=== PATIENT | female | born 1985 | race Caucasian/White ===

== ENCOUNTER 2017-04-25 19:40 | Emergency (ER) | payer SELFPAY ==
[~2017-04-25] VITALS: Ht 177.8 cm; Wt 67.1 kg
[~2017-04-25 19:40] MED LIST: ONDA4TAB7 SL
[2017-04-25 19:52] VITALS: TEMP 37; Ht 177.8 cm; Wt 67.1 kg
--- NOTE | 2017-04-25 20:48 | EMERGENCY ROOM VISIT NOTE ---
History First contact with patient: 20:23 Chief Complaint: ED VAG BLEEDING Stated Complaint: 10 WEEKS ,BRIGHT RED SPOTTING History of Present Illness The patient is a 31 year old female who presents to the Emergency Room with complaints of vaginal bleeding that occurred approximately 2 hours prior to arrival. She thinks that it was approximately a tablespoon of blood. The patient is almost 11 weeks . She denies any abdominal cramping. No recent illnesses. She is undergoing needle care with a [employer]. She has not yet had an ultrasound. Review of Systems 10 system review performed and negative unless noted in HPI or below Past Medical/Surgical History Medical Problems: (1) Hx-Circulatory Syst Dis,Nec (2) No Known Active Medical Problems Family History No significant family history Social History Smoking Status: Never Smoker Marital Status: Housing Status: lives with family Occupation Status: unemployed Current/Historical Medications Scheduled Multivit/Min/Iron/Fol Ac/Pren ( Vitamin), 1 TAB PO DAILY Terbinafine (Lamisil Advanced), 1 DOSE TOP BID Physical Exam Vital Signs Date Time Temp Pulse Resp B/P (MAP) Pulse Ox O2 Delivery O2 Flow Rate FiO2 04/25/17 22:36 65 18 121/68 Room Air 04/25/17 21:23 76 18 117/59 98 Room Air 04/25/17 19:52 37.0 82 18 134/79 100 Room Air Physical Exam VITALS: Vitals are noted on the nurse's note and reviewed by myself. Vital signs stable. GENERAL: 31-year-old female, in no acute distress, nondiaphoretic, well- developed well-nourished. SKIN: The skin was without rashes, erythema, edema, or bruising. HEAD: Normocephalic atraumatic. MOUTH: Mucous membranes moist. NECK: Supple without nuchal rigidity. No lymphadenopathy. Cervical spine is nontender. No JVD. HEART: Regular rate and rhythm without murmurs gallops or rubs. LUNGS: Clear to auscultation bilaterally without wheezes, rales or rhonchi. No accessory muscle use. ABDOMEN: Gravid. Positive bowel sounds x 4.Soft, nontender, without organomegaly. No guarding or rebound tenderness. : MUSCULOSKELETAL: No muscle atrophy, erythema, or edema noted. Strength 5/5 throughout. NEURO: Patient was alert and oriented to person place and time. Normal sensation to touch. No focal neurological deficits. Medical Decision & Procedures ER Provider Diagnostic Interpretation: OB ultrasound FINDINGS: Intrauterine gestational sac is noted with a mean sac diameter of 2.74 cm which corresponds to an estimated gestational age of 7 weeks and 4 days. A small yolk sac, measuring 1.8 mm is noted. A pole is noted with a crown rump length of 11 mm. This has an estimated gestational age of 7 weeks and 2 days. No cardiac activity is identified. A 1.3 x 0.5 x 1.7 cm subchorionic hypoechoic focus suggests a subchorionic bleed. The ovaries are sonographically normal on this exam. The right ovary measures 3 x 1.7 x 2.5 cm and the left measures 2.8 x 1.1 x 2.3 cm. IMPRESSION: 1. Intrauterine gestational sac which contains a pole with a crown-rump length of 11 mm. No cardiac activity identified consistent with demise. 2. Small subchorionic hematoma measuring 1.7 x 1.3 x 0.5 cm. Electronically signed by: Armand Sams M.D. 04/25/2017 10:17 PM Dictated Date/Time: 04/25/2017 10:12 PM Laboratory Results 04/25/17 21:00 Red Blood Count 3.87, Mean Corpuscular Volume 92.8, Mean Corpuscular Hemoglobin 32.0, Mean Corpuscular Hemoglobin Concent 34.5, Mean Platelet Volume 10.1, Neutrophils (%) (Auto) 64.5, Lymphocytes (%) (Auto) 25.2, Monocytes (%) (Auto) 8.0, Eosinophils (%) (Auto) 1.6, Basophils (%) (Auto) 0.5, Neutrophils # (Auto) 5.61, Lymphocytes # (Auto) 2.19, Monocytes # (Auto) 0.70, Eosinophils # (Auto) 0.14, Basophils # (Auto) 0.04 04/25/17 21:00 Test 04/25/17 20:46 04/25/17 21:00 Urine Color YELLOW Urine Appearance CLEAR (CLEAR) Urine pH 6.5 (4.5-7.5) Urine Specific [place] 1.018 (1.000-1.030) Urine Protein NEG (NEG) Urine Glucose (UA) NEG (NEG) Urine Ketones NEG (NEG) Urine Occult Blood 2+ (NEG) Urine Nitrite NEG (NEG) Urine Bilirubin NEG (NEG) Urine Urobilinogen NEG (NEG) Urine Leukocyte Esterase SMALL (NEG) Urine WBC (Auto) 1-5 /hpf (0-5) Urine RBC (Auto) 5-10 /hpf (0-4) Urine Hyaline Casts (Auto) 1-5 /lpf (0-5) Urine Epithelial Cells (Auto) >30 /lpf (0-5) Urine Bacteria (Auto) NEG (NEG) White Blood Count 8.70 K/uL (4.8-10.8) Red Blood Count 3.87 M/uL (4.2-5.4) Hemoglobin 12.4 g/dL (12.0-16.0) Hematocrit 35.9 % (37-47) Mean Corpuscular Volume 92.8 fL (80-100) Mean Corpuscular Hemoglobin 32.0 pg (25-34) Mean Corpuscular Hemoglobin Concent 34.5 g/dl (32-36) Platelet Count 202 K/uL (130-400) Mean Platelet Volume 10.1 fL (7.4-10.4) Neutrophils (%) (Auto) 64.5 % Lymphocytes (%) (Auto) 25.2 % Monocytes (%) (Auto) 8.0 % Eosinophils (%) (Auto) 1.6 % Basophils (%) (Auto) 0.5 % Neutrophils # (Auto) 5.61 K/uL (1.4-6.5) Lymphocytes # (Auto) 2.19 K/uL (1.2-3.4) Monocytes # (Auto) 0.70 K/uL (0.11-0.59) Eosinophils # (Auto) 0.14 K/uL (0-0.5) Basophils # (Auto) 0.04 K/uL (0-0.2) RDW Standard Deviation 43.9 fL (36.4-46.3) RDW Coefficient of Variation 13.1 % (11.5-14.5) Immature Granulocyte % (Auto) 0.2 % Immature Granulocyte # (Auto) 0.02 K/uL (0.00-0.02) Anion Gap 5.0 mmol/L (3-11) Est Creatinine Clear Calc Drug Dose 158.4 ml/min Estimated GFR () 145.9 Estimated GFR (Non- 125.9 BUN/Creatinine Ratio 20.2 (10-20) Calcium Level 8.9 mg/dl (8.5-10.1) Total Bilirubin 0.2 mg/dl (0.2-1) Aspartate Amino Transf (AST/SGOT) 8 U/L (15-37) Alanine Aminotransferase (ALT/SGPT) 16 U/L (12-78) Alkaline Phosphatase 65 U/L (45-117) Total Protein 6.7 gm/dl (6.4-8.2) Albumin 3.6 gm/dl (3.4-5.0) Globulin 3.1 gm/dl (2.5-4.0) Albumin/Globulin Ratio 1.2 (0.9-2) Progesterone Level 5.89 ng/mL Human Chorionic Gonadotropin, Quant 9009 mIU/mL ED Course Patient was seen and examined Vital signs including blood pressure were reviewed medications list was verified with patient Labs were obtained, and a saline lock was established I reviewed discharge instructions the patient. They voiced understanding and had no further questions. Medical Decision Differential diagnosis: Subchorionic hemorrhage, threatened , uterine fibroids,, incomplete This patient is a 31-year-old female presents to the emergency department with vaginal bleeding. She is approximately 11 weeks . Unfortunately, her hCG level is slightly low for her presumed gestational age. An ultrasound confirms there is no cardiac activity. On exam, the cervix appears closed. The case was discussed with obstetrics. She was advised to call tomorrow morning to make a follow-up appointment. The patient's blood type is A +. There is no need for Rhogan. She was instructed to take Tylenol as needed for pain. She will return to the emergency department with any new or worsening symptoms. This chart was completed in part utilizing [employer] Voice Recognition software. Attempts were made to minimize the grammatical errors, random word insertions, pronoun errors and incomplete sentences. Any formal questions or concerns about the content, text or information contained within the body of this dictation should be directly addressed to the provider for clarification. Medication Reconcilliation Current Medication List: was personally reviewed by me Blood Pressure Screening Patient's blood pressure: Normal blood pressure Consults Consulting Physician: Dr. Jaime Impression Primary Impression: Incomplete miscarriage Departure Information Dispostion Home / Self-Care Condition FAIR Referrals Schrack,Glenn Toribio (PCP) Cynthia Cedeño M.D. Amos Jaime MD Patient Instructions [facility] Additional Instructions You were evaluated in the emergency department for vaginal bleeding. Unfortunately, no heartbeat was seen on the ultrasound. This is most likely consistent with a miscarriage. It is very important for you to follow up with an CARE AIDE doctor. You may contact either the [facility] or [facility] group. Please call tomorrow morning for a follow-up appoint. -Dr. Cedeño--> dennis Aguilar -Dr. Jaime --> Cyril Please take Tylenol 650 mg tabs every 6 hours as needed for pain. You will likely continue to bleed. If this becomes heavy (greater than 1 pad per hour) or for any severe pain, please return to the emergency department. Please no sexual activity until okay with the CARE AIDE doctor. Please use pads. Do not use tampons.
[2017-04-25 20:59] LABS: URINE APPEARANCE CLEAR (CLEAR); URINE BILIRUBIN NEG (NEG); URINE COLOR YELLOW; URINE EPITHELIAL CELL AUTO >30 /lpf (0-5); URINE NITRITE NEG (NEG); URINE PH 6.5 (4.5-7.5); URINE SPECIFIC GRAVITY 1.018 (1.000-1.030); UROBILINOGEN NEG (NEG)
[2017-04-25 21:06] LABS: MANUAL MICROSCOPIC REQUIRED? NO; REVIEW REQ? NO
[2017-04-25] MEDS ORDERED: PRENTAB26 PO (21:17)
[2017-04-25] MEDS ORDERED: [UNRECOGNIZED DRUG - CODE] TOP (21:17)
[2017-04-25 21:23] VITALS: O2SAT 98
[2017-04-25 21:36] LABS: BASO % 0.5 %; BASO ABS # 0.04 K/uL (0-0.2); COMPLETE YES; EOS % 1.6 %; HEMATOCRIT 35.9 % (37-47); IG% 0.2 %; LYMPH % 25.2 %; LYMPH ABS # 2.19 K/uL (1.2-3.4); MEAN CELL VOLUME 92.8 fL (80-100); MEAN CORPUSCULAR HGB CONC 34.5 g/dl (32-36); MEAN PLATELET VOLUME 10.1 fL (7.4-10.4); NEUT % 64.5 %; PLATELET COUNT 202 K/uL (130-400); RED BLOOD COUNT 3.87 M/uL (4.2-5.4)
[2017-04-25 21:53] LABS: BUN/CREATININE RATIO 20.2 (10-20); CALCIUM 8.9 mg/dl (8.5-10.1); CREATININE 0.55 mg/dl (0.60-1.20); POTASSIUM 3.8 mmol/L (3.5-5.1)
[2017-04-25 21:56] LABS: ALB/GLOB RATIO 1.2 (0.9-2)
--- NOTE | 2017-04-25 22:19 | DIAGNOSTIC IMAGING REPORT ---
ULTRASOUND CLINICAL HISTORY: with vaginal bleeding. COMPARISON STUDY: No previous studies for comparison. TECHNIQUE: Transabdominal and transvaginal sonography of the pelvis was performed. FINDINGS: Intrauterine gestational sac is noted with a mean sac diameter of 2.74 cm which corresponds to an estimated gestational age of 7 weeks and 4 days. A small yolk sac, measuring 1.8 mm is noted. A pole is noted with a crown rump length of 11 mm. This has an estimated gestational age of 7 weeks and 2 days. No cardiac activity is identified. A 1.3 x 0.5 x 1.7 cm subchorionic hypoechoic focus suggests a subchorionic bleed. The ovaries are sonographically normal on this exam. The right ovary measures 3 x 1.7 x 2.5 cm and the left measures 2.8 x 1.1 x 2.3 cm. IMPRESSION: 1. Intrauterine gestational sac which contains a pole with a crown-rump length of 11 mm. No cardiac activity identified consistent with demise. 2. Small subchorionic hematoma measuring 1.7 x 1.3 x 0.5 cm. Electronically signed by: Armand Sams M.D. 04/25/2017 10:17 PM Dictated Date/Time: 04/25/2017 10:12 PM
[2017-04-25 22:36] VITALS: BP 121/68; PULSE 65
== END 2017-04-25 23:03 | disposition home or self-care (01) ==
LOC: C.EDB 19:42 → C.EDC 23:03
DX: O03.4 Incomplete spontaneous abortion without complication (principal); Z3A.11 11 weeks gestation of pregnancy; I99.9 Unspecified disorder of circulatory system